=== PATIENT | male | born 1965 | race Caucasian/White ===

== ENCOUNTER → 2016-06-17 | Outpatient (CLI) | payer OTHER ==
--- NOTE | 2016-06-17 12:44 | DX ---
Chest, Two Views at 1146 hours History: . Cough, congestion, chest pain Comparison: July 2014 Findings: Cardiac silhouette is within normal range. Bilateral peribronchial thickening. Possible ear ly right lower lobe infiltrate. Left lung is clear. No pleural effusion or pneumothorax. Chronic scar ring in the right costophrenic angle. Impression: 1. Possible early right lower lobe pneumonia. 2. Superimposed bronchitis. 3. No pleural effusion or pneumothorax.
== END ==
LOC: BMCIMAGING 11:44
PROVIDERS: ATTEND Emergency Medicine
DX: J20.9 Acute bronchitis, unspecified (principal)